=== PATIENT | male | born 1960 | race American Indian/Alaskan Native ===

== ENCOUNTER 2018-04-27 00:17 | Emergency (ER) | payer OTHER ==
[2018-04-27 00:18] VITALS: BMI 24.8
[2018-04-27 00:51] VITALS: BP 166/95; PULSE 84; RESP 17; TEMP 98.3; O2SAT 99
[2018-04-27] MEDS ORDERED: Naproxen 500 MG TAB PO ONE ×2 (01:25→01:35)
--- NOTE | 2018-04-27 01:29 | ED PDOC ---
HPI: General Adult Time Seen by Provider: 04/27/18 01:06 Chief Complaint (Nursing): ENT Problem Chief Complaint (Provider): right jaw pain History Per: Patient History/Exam Limitations: no limitations Onset/Duration Of Symptoms: Days (2), Waxing/Waning Current Symptoms Are (Timing): Still Present Additional Complaint(s): 57 y/o male presents for evaluation of right jaw pain x 2 days. Patient states he ate a whole box of jelly beans on Tuesday and woke up with the pain Tuesday, which is worse when opening mouth and when chewing on right side. Patient notes pain to sometimes radiate to neck. Denies fever, ear pain, tooth pain, difficulty speaking/swallowing, cough, congestion. Past Medical History Reviewed: Historical Data, Nursing Documentation, Vital Signs Vital Signs: Last Vital Signs Temp 98.3 F 04/27/18 00:33 Pulse 84 04/27/18 00:33 Resp 17 04/27/18 00:33 BP 166/95 H 04/27/18 00:33 Pulse Ox 99 04/27/18 00:33 - Medical History PMH: Depression, HIV, HTN, Hypercholesterolemia - Surgical History Surgical History: No Surg Hx - Family History Family History: States: No Known Family Hx - Living Arrangements Living Arrangements: With Family - Home Medications Home Medications: Ambulatory Orders Medication Instructions Recorded Bupropion Hydrochloride 100 mg PO DAILY 11/22/12 [Wellbutrin] Escitalopram [Lexapro] 10 mg PO DAILY 11/22/12 Naproxen 250 mg PO BID PRN #10 tab 11/22/12 Nevirapine [Viramune] 200 mg PO 11/22/12 Naproxen [Naprosyn] 500 mg PO Q12 PRN #14 tablet 04/27/18 - Allergies Allergies/Adverse Reactions: Allergies Allergy/AdvReac Type Severity Reaction Status Date / Time No Known Allergies Allergy Verified 11/22/12 14:30 Review of Systems ROS Statement: Except As Marked, All Systems Reviewed And Found Negative ENT: Positive for: Other (right jaw pain) Physical Exam - Reviewed Nursing Documentation Reviewed: Yes Vital Signs Reviewed: Yes - Physical Exam Appears: Positive for: Well, Non-toxic, No Acute Distress Head Exam: Positive for: ATRAUMATIC, NORMAL INSPECTION, NORMOCEPHALIC Skin: Positive for: Normal Color Eye Exam: Positive for: Normal appearance ENT: Positive for: Normal ENT Inspection, TM Is/Are (clear bilaterally), Other ( pain right TMJ with opening mouth and with clenching of upper/lower molars on right side; no obvious swelling, erythema, deformity noted. Dentition intact, nontender). Negative for: Nasal Congestion, Pharyngeal Erythema, Tonsillar Exudate, Tonsillar Swelling Cardiovascular/Chest: Positive for: Regular Rate, Rhythm Respiratory: Positive for: Normal Breath Sounds Gastrointestinal/Abdominal: Positive for: Normal Exam Back: Positive for: Normal Inspection Extremity: Positive for: Normal ROM Neurologic/Psych: Positive for: Alert, Oriented - ECG O2 Sat by Pulse Oximetry: 99 - Progress ED Course And Treament: Naproxen PO Patient educated on findings, discharged with rx Naproxen Advised follow up PMD 2-3 days Return precautions given Disposition - Clinical Impression Clinical Impression: Temporomandibular joint pain - Patient ED Disposition Is Patient to be Admitted: No Counseled Patient/Family Regarding: Diagnosis, Need For Followup, Rx Given - Disposition Referrals: Eric Kingsley MD [Primary Care Provider] - Disposition: Routine/Home Disposition Time: 01:30 Condition: IMPROVED Prescriptions: Naproxen [Naprosyn] 500 mg PO Q12 PRN #14 tablet PRN Reason: Pain, Moderate (4-7) Instructions: Temporomandibular Joint (TMJ) Disorders
== END 2018-04-27 01:47 | disposition home or self-care (01) ==
LOC: H.ER 00:17
DX: R68.84 Jaw pain (principal); E78.00 Pure hypercholesterolemia, unspecified; F32.9 Major depressive disorder, single episode, unspecified; I10 Essential (primary) hypertension

== ENCOUNTER 2018-11-11 00:57 | Emergency (ER) | payer OTHER ==
[2018-11-11 00:57] VITALS: BMI 26.6
[2018-11-11 01:21] VITALS: BP 176/89; PULSE 94; RESP 17; TEMP 98.3; O2SAT 97
--- NOTE | 2018-11-11 03:38 | ED PDOC ---
Upper Extremity Pain/Injury Time Seen by Provider: 11/11/18 01:17 Chief Complaint (Nursing): Finger,Hand,&Wrist Chief Complaint (Provider): Left thumb pain History Per: Patient History/Exam Limitations: no limitations Onset/Duration Of Symptoms: Days (3) Current Symptoms Are (Timing): Still Present Quality: Dull Severity: Moderate Additional Complaint(s): 58 yo male with HTN, HIV and high cholesterol presents for evaluation of left thumb pain, swelling and discomfort. Pt states he noticed clicking of the distal joint when bending and straightening it. PT states clicking is associated with discomfort. Pt denies trauma/injury. PT states he also noticed the left thumb appears slightly swollen. Past Medical History Reviewed: Historical Data, Nursing Documentation, Vital Signs Vital Signs: Last Vital Signs Temp 98.3 F 11/11/18 01:10 Pulse 94 H 11/11/18 01:10 Resp 17 11/11/18 01:10 BP 176/89 H 11/11/18 01:10 Pulse Ox 97 11/11/18 01:10 - Medical History PMH: Depression, HIV, HTN, Hypercholesterolemia - Surgical History Surgical History: No Surg Hx - Family History Family History: States: No Known Family Hx - Home Medications Home Medications: Ambulatory Orders Medication Instructions Recorded Bupropion Hydrochloride 300 mg PO DAILY 11/22/12 [Wellbutrin] Escitalopram [Lexapro] 10 mg PO DAILY 11/22/12 Abacavir/Dolutegravir/Lamivudi 1 tab PO DAILY 11/10/18 [Triumeq 600-50-300 mg Tablet] Atorvastatin [Lipitor] 10 mg PO DAILY 11/10/18 Losartan/Hydrochlorothiazide 1 tab PO DAILY 11/10/18 [Hyzaar 100-12.5 Tablet] amLODIPine [Norvasc] 10 mg PO DAILY 11/10/18 Naproxen [Naprosyn] 500 mg PO BID PRN #20 tablet 11/11/18 - Allergies Allergies/Adverse Reactions: Allergies Allergy/AdvReac Type Severity Reaction Status Date / Time No Known Allergies Allergy Verified 11/10/18 01:07 Review of Systems ROS Statement: Except As Marked, All Systems Reviewed And Found Negative Constitutional: Negative for: Fever, Chills Musculoskeletal: Positive for: Other Physical Exam - Reviewed Nursing Documentation Reviewed: Yes Vital Signs Reviewed: Yes - Physical Exam Appears: Positive for: Well, Non-toxic, No Acute Distress Head Exam: Positive for: ATRAUMATIC, NORMAL INSPECTION, NORMOCEPHALIC Skin: Positive for: Normal Color (No lesions, abrasions, ecchymosis or erythema of the left thumb ), Warm Eye Exam: Positive for: Normal appearance ENT: Positive for: Normal ENT Inspection Neck: Positive for: Normal, Painless ROM Cardiovascular/Chest: Negative for: Bradycardia, Tachycardia Respiratory: Negative for: Accessory Muscle Use, Respiratory Distress Back: Positive for: Normal Inspection Extremity: Positive for: Normal ROM, Swelling (Left thumb, palpable clicking with movement of the dip). Negative for: Tenderness, Deformity Neurologic/Psych: Positive for: Alert, Oriented - ECG O2 Sat by Pulse Oximetry: 97 Pulse Ox Interpretation: Normal Medical Decision Making Medical Decision Making: Hand/thumb XR without fracture Splint, discussed NSIAD and f/u with hand. Disposition - Clinical Impression Clinical Impression: Thumb anomaly - Disposition Referrals: Aden Snowden MD [Medical Doctor] - Disposition: Routine/Home Disposition Time: 03:32 Condition: GOOD Prescriptions: Naproxen [Naprosyn] 500 mg PO BID PRN #20 tablet PRN Reason: Pain Instructions: Tendonitis
--- NOTE | 2018-11-11 18:24 | RAD ---
Date of service: 11/11/2018 PROCEDURE: Left Thumb radiographs. HISTORY: pain, clicking sensation COMPARISON: None. TECHNIQUE: AP radiograph of the left hand, as well as spot oblique and lateral images of thumb were obtained. FINDINGS: LEFT THUMB: Normal left thumb, without fracture or focal lesion. Remainder of the left hand (as seen on the AP view) grossly unremarkable. JOINTS: Normal. SOFT TISSUES: Normal. OTHER FINDINGS: None. IMPRESSION: No evidence of acute displaced fracture nor dislocation. The osseous structures appear intact.
== END 2018-11-11 06:37 | disposition home or self-care (01) ==
LOC: H.ER 00:57
DX: Q98.1 Klinefelter syndrome, male with more than two X chromosomes (principal); E78.00 Pure hypercholesterolemia, unspecified; I10 Essential (primary) hypertension